=== PATIENT | female | born 1955 | race Caucasian/White ===

== ENCOUNTER 2019-08-07 14:11 | Emergency (ER) | payer OTHER, SELFPAY ==
[2019-08-07 14:12] VITALS: BP 116/81; PULSE 106; RESP 20; TEMP 37.2; O2SAT 96; BMI 28.8
--- NOTE | 2019-08-07 14:27 | CT_ITS ---
STUDY: CT SOFT TISSUE NECK WITH CONTRAST REASON FOR EXAM: Female, 64 years old. SORE THROAT AND DIFFICULTY SWALLOWING RADIATION DOSAGE (If Supplied By Facility): CTDIvol = ( 19.01 ) mGy, DLP = ( 531.74 ) mGycm TECHNIQUE: The patient was scanned in a multi-detector CT scanner. High resolution transaxial imaging was performed following intravenous administration of IV 100mL Isovue-300. Sagittal and coronal images were reconstructed. Individualized dose optimization techniques were used for this CT. COMPARISON: None. FINDINGS: Normal bilateral parotid glands. Normal bilateral necktie turner spaces. Normal bilateral parapharyngeal spaces. Normal bilateral carotid spaces. Normal bilateral sublingual and submandibular glands and spaces. Normal visualized nasopharynx. Normal retropharyngeal space. Normal perivertebral space. There is diffuse inhomogeneous enlargement of the left faucial tonsils. There is a 1.3 cm x 1.3 cm hypodensity in the anterior aspect as well as a 0.6 cm x 0.5 cm hypodensity posteriorly. These most likely represent 2 focal abscesses in the deep aspect of the left tonsils. The visualized tongue, tongue base and oropharynx are normal. There are minimally enlarged lymph nodes of the neck, with preservation of normal roberto carlos architecture, consistent with a reactive lymph hyperplasia. There is no demonstrated solid or cystic mass lesion. There is no abnormal contrast enhancement. Normal epiglottis, bilateral vallecula and hypopharynx. The pre-epiglottic and paraglottic adipose spaces are normal. Normal visualized bilateral piriform sinuses, aryepiglottic folds, vocal cords, and arytenoid-cricoid articulations. Normal subglottic trachea. Normal bilateral lobes of the thyroid gland. Normal visualized pulmonary apices. Normal visualized paranasal sinuses. There is degenerative changes of the cervical spine. CT/Soft Tissue Neck WITH Contrast IMPRESSION: Inhomogeneous enlargement of the left faucial tonsils with 2 areas suggestive of tonsillar abscess as described above.. Electronically Signed: Lauri Field, at 15:46 EDT , Service support ,
--- NOTE | 2019-08-07 14:30 | ED.VIS.GEN ---
History of Present Illness Chief Complaint: Sore Throat Informant: Patient Narrative: Patient presents to the emergency department for evaluation of sore throat. She tells me she felt ill on Monday. She has had some fevers no significant cough. She states that as time is gone on the inside of her throat feels more swollen my gland on the left side of the throat is swollen. Denies any rashes. No vomiting or diarrhea. She notes headache and fatigue. The patient states that she went to urgent care on Monday and was told to take Mucinex and another medication that she cannot recall that was for numbing her throat. Past Medical History - Allergies and Home Meds Allergies/Adverse Reactions: Allergies Sulfa (Sulfonamide Antibiotics) Allergy (Verified 08/07/19 14:14) Unknown Primary Care Physician: Kota Santos MD [Primary Care Provider] - Review of Systems General: Reports: Chills, Fever, Malaise. Denies: Sweats Eyes: Denies: Visual changes - bilaterally, Diplopia ENT: Reports: Sore throat. Denies: Rhinorrhea Cardiovascular: Denies: Chest pain, Palpitations Respiratory: Denies: Dyspnea, Cough, Dyspnea on exertion Gastrointestinal: Denies: Abdominal pain, Nausea, Vomiting, Diarrhea, Melena, Hematochezia Genitourinary: Denies: Dysuria, Hematuria, Frequency Musculoskeletal: Reports: Neck pain. Denies: Back pain, Extremity Pain Skin: Denies: Rash, Wounds Neurological: Denies: Headache, Weakness, Numbness Physical Exam Vital Signs/Narrative: Vital Signs Temp Pulse Resp BP Pulse Ox 08/07/19 14:12 98.9 F 106 H 20 H 116/81 H 96 Inital Vital Signs reviewed: Yes General: Well nourished, Well developed, No Acute Distress Head: Normocephalic, Atraumatic Eyes: Perrl, EOMI ENT: Moist mucous membranes, No rhinorrhea, - - Peritonsillar abscess. Patient is without tonsils however. There is some oropharyngeal erythema. She is handling her secretions normal. Neck: Supple Cardiovascular: Regular rate, Regular rhythm, No murmurs Respiratory: No distress, CTA bilaterally, Chest nontender Abdomen: Soft, Nontender, Nondistended, Normal bowel sounds Back: Nontender, Normal Inspection Extremities: Nontender, No edema Skin: Normal color, No rash Neurological: Alert, Oriented x3, Cranial nerves II-XII grossly intact, Normal Strength, Normal Sensation Psychological: Normal affect, Normal Mood ED Disposition - Plan for ED Patient: Disposition: Home or Assisted Living Diagnosis: Peritonsillar abscess Instructions: PERITONSILLAR INFECTION ABX only, no I and D Prescriptions: Amox/Clav 400mg/5ml Suspension [Augmentin Suspension 400mg/5ml] 11 ml PO Q12H 10 Days #220 ml Transmission Status: Pending to [id number] Hydrocodone/Acetaminophen [Hydrocodone-Acetamn 7.5-325/15] 15 ml PO Q8H PRN 5 Days #225 ml PRN Reason: Pain Score 1-10/10 Transmission Status: Received by [id number] Referrals: Sourav Whalen MD [STAFF PHYSICIAN] - (ON MONDAY - PLEASE CALL OFFICE FOR APPOINTMENT TIME)
[2019-08-07 14:46] VITALS: BP 130/82; PULSE 98; RESP 16; O2SAT 95
[2019-08-07 14:51] LABS: Absolute Neutrophil Count 8.3 X10^3/uL (2.0-7.7); Basophil# 0.03 X10^3/uL; Basophil% 0.3 % (0-1); Eosinophil# 0.03 X10^3/uL; Eosinophils% 0.3 % (0-5); Hematocrit 45.9 % (37-47); Hemoglobin 15.4 g/dL (12.0-15.0); Lymphocyte % 18.6 % (19-41); Mean Corp Hgb Conc 33.6 g/dL (32-36); Mean Corpuscular Hgb 30.7 pg (27.0-32.0); Mean Corpuscular Volume 91.4 fL (81-99); Mean Platelet Vol. 9.5 fl (6.2-12.0); Monocyte# 0.83 X10^3/uL; Monocyte% 7.4 % (0-10); NRBC Flagged by Analyzer 0 % (0-5); Neutrophil # 8.25 X10^3/uL (2.7-7.7); Neutrophil % 73.1 % (47-70); Platelet Count 204 K/mm3 (150-450); RBC Distribution Width CV 12.6 % (11.6-14.6); RBC Distribution Width SD 42.1 fl (35.1-43.9); Red Blood Count 5.02 M/mm3 (4.2-5.4); White Blood Count 11.3 K/mm3 (4.4-11.0)
[2019-08-07 15:06] LABS: Anion Gap 3 (5-15); BUN 16 mg/dL (7-18); BUN/Creat Ratio 19.1 RATIO (10-20); Calcium,Total 9.3 mg/dL (8.5-10.1); Chloride 105 mmol/L (98-107); Creatinine, Serum 0.84 mg/dL (0.55-1.02); EST Glomerular Filtration Rate 73 mL/min (>60); Est Glom Filt Rate - Afr Amer 88 mL/min (>60); Estimated Creatinine Clearance 56.71 ml/min; Glucose 232 mg/dL (74-106); Potassium 4.2 mmol/L (3.5-5.1); Sodium Level 136 mmol/L (136-145)
[2019-08-07] MEDS: 0.9% Normal Saline 1,000 ML 999 ML IV (15:42)
[2019-08-07] MEDS: dexAMETHasone 10 MG/ML Vial IV (15:43)
[2019-08-07] MEDS: Ketorolac 15 MG/ML Vial IV (15:43)
[2019-08-07 16:41] VITALS: BP 116/79; PULSE 79; RESP 18; O2SAT 95
== END 2019-08-07 16:42 | disposition home or self-care (01) ==
PROVIDERS: Emergency Provider Emergency Medicine; PCP Family Medicine
DX: J36 Peritonsillar abscess (principal)
CPT/HCPCS: 70491; 80048; 85025; 87070; 96361; 96374; 96375; 99282; J7030; Q9967; A4216

== ENCOUNTER → 2020-07-27 | Outpatient (CLI) | payer OTHER, SELFPAY ==
[2019-11-11 10:17] VITALS: BMI 28.8
--- NOTE | 2020-07-27 | ASPS_PTH ---
PATIENT: LOIS MATA LOC: [facility] U#:[id number] AGE/SX: 65/F ROOM: RE07/27/[address]: Dr. Vlad Medina MD : 1955 BED: DIS: 07/27/2020 SPEC #: [id number] RECD: 07/28/20 11:53 STATUS: YVAN REQ #: [id number] ROSE MARIE: 07/27/20 00:[address]: Vlad Medina DEPT: CYTOLOGY RECD BY: Francisco Perez ENTERED: 07/28/20 12:59 SP TYPE: ASPIRATION OTHR DR: Dr. Kota Santos MD Tissues: Thyroid gland, NOS Procedures: Special Stain Group II Cytology Other HEADER OPERATION: Ultrasound-guided fine needle aspiration of right thyroid PRE-OP DIAGNOSIS: Thyroid nodules TISSUE SUBMITTED: Right thyroid FNA slides x13 DIAGNOSIS CYTOLOGY Right thyroid, ultrasound-guided FNA (smears): Rare atypical cells of undetermined significance noted in the background of benign colloid nodule. Adequate for evaluation. See comment. SJ:sabina 07/29/2020 COMMENT Focal calcification is also noted. Correlation with clinical, radiologic findings and appropriate follow up are necessary. CYTOLOGY STUDY Slides are reviewed. CYTOLOGY GROSS Received are 13 smears labeled with the patient's name and designated per the requisition as right thyroid. Submitted for staining. / sabina 07/28/2020 TC:5 CPT: 19817 ADDENDUM ADDENDUM ADDENDUM ADDENDUM ADDENDUM ADDENDUM ADDENDUM ADDENDUM ADDENDUM ADDENDUM 12/16/2020 10:05 ADDENDUM 12/16/2020 10:05 ADDENDUM 12/16/2020 10:05 ADDENDUM 12/16/2020 10:05 ADDENDUM 12/16/2020 10:05 This addendum is added to incorporate an outside pathology consultation report. The case was examined at [facility] (#[id number]) and the following diagnosis was rendered. Right thyroid, ultrasound-guided fine needle aspiration: Atypia of undetermined significance. Please see complete above mentioned consultation report in EMR
== END | disposition home or self-care (01) ==
LOC: LABSPEC 07-28 12:11
PROVIDERS: PCP Family Medicine; Referring Provider Surgery; Visit Provider Surgery
DX: E04.2 Nontoxic multinodular goiter (principal)
CPT/HCPCS: 88161; 88313

== ENCOUNTER → 2021-03-05 11:05 | Outpatient (CLI) | payer MEDICARE, BC, SELFPAY ==
--- NOTE | 2021-03-05 | CYSPIN_PTH ---
PATIENT: LOIS MATA LOC: [facility] U#:[id number] AGE/SX: 70/F ROOM: RE03/05/[address]: Dr. Ariane Smith MD : 1955 BED: DIS: SPEC #: [id number] RECD: 03/08/21 07:45 STATUS: YVAN REBobby #: [id number] ROSE MARIE: 03/05/21 00:[address]: Ariane Smith DEPT: CYTOLOGY RECD BY: Francisco Perez ENTERED: 03/08/21 07:46 SP TYPE: CYSPIN FL OTHR DR: Dr. Kota Santos MD Tissues: Urine Procedures: Pap Stain (control) Special Stain Group II Cytospin Fluid HEADER OPERATION: Not noted PRE-OP DIAGNOSIS: Gross hematuria TISSUE SUBMITTED: Urine for cytology DIAGNOSIS CYTOLOGY Urine for cytology (cytospin): Negative for malignant cells. See comment. GRACY:sabina 03/08/2021 COMMENT Clinical correlation and appropriate follow up are necessary. CYTOLOGY STUDY Slides are reviewed. CYTOLOGY GROSS Received is 10 ml of light yellow cloudy fluid labeled with the patient's name and and designated per the requisition as urine. Submitted for cytology preparation. / sabina 03/05/21 TC:5 CPT: 85741
[2021-03-05 13:33] LABS: Cytology, Body Fluid / CSF SEE PATHOLOGY REPORT
[2021-03-05 13:46] LABS: Anion Gap 4 (5-15); BUN 15 mg/dL (7-18); BUN/Creat Ratio 23.3 RATIO (10-20); Calcium,Total 9.3 mg/dL (8.5-10.1); Chloride 106 mmol/L (98-107); Creatinine, Serum 0.64 mg/dL (0.55-1.02); EST Glomerular Filtration Rate 98 mL/min (>60); Est Glom Filt Rate - Afr Amer 119 mL/min (>60); Glucose 110 mg/dL (74-106); Potassium 4.5 mmol/L (3.5-5.1); Sodium Level 139 mmol/L (136-145)
== END ==
PROVIDERS: PCP Family Medicine; Referring Provider Urology; Visit Provider Urology
DX: R31.0 Gross hematuria (principal)
CPT/HCPCS: 36415; 80048; 88108; 88313

== ENCOUNTER → 2021-03-15 15:47 | Outpatient (CLI) | payer MEDICARE, BC, SELFPAY ==
--- NOTE | 2021-03-15 15:50 | CT_ITS ---
EXAM: CT ABDOMEN AND PELVIS WITHOUT AND WITH INTRAVENOUS CONTRAST : 1955 CLINICAL INDICATION: GROSS HEMATURIA TECHNIQUE: Helically acquired images were obtained of the abdomen and pelvis without and with intravenous contrast. This CT exam was performed using one or more of the following dose reduction techniques: automated exposure control, adjustment of the mA and/or kV according to patient size, and/or use of iterative reconstruction technique. This report was created using [employer] report generation technology. CONTRAST: 100 CC ISOVUE 300 COMPARISON: None. FINDINGS: LOWER THORAX: Unremarkable. Lung bases are clear. No cardiomegaly. No significant pericardial effusion. ABDOMEN: LIVER: Unremarkable. Homogeneous. No focal mass. GALLBLADDER AND BILE DUCTS: Unremarkable. No calcified gallstones. No gallbladder distention or wall edema. No intra- or extrahepatic biliary ductal dilation. PANCREAS: Unremarkable. No focal cystic or solid mass. SPLEEN: Unremarkable. Normal size without focal cystic or solid mass. ADRENALS: Unremarkable. No nodules. KIDNEYS AND URETERS: Unremarkable. Normal renal size and position. No hydronephrosis. STOMACH AND BOWEL: Unremarkable. No stomach or bowel distention. No focal inflammatory change. PELVIS: APPENDIX: No evidence of acute appendicitis. BLADDER: Unremarkable. REPRODUCTIVE: Unremarkable as visualized. No mass. ABDOMEN and PELVIS: INTRAPERITONEAL SPACE: Unremarkable. No ascites or other fluid collection. No free air. BONES/JOINTS: Unremarkable. No suspicious lytic or blastic abnormality. SOFT TISSUES: Unremarkable. No discrete abdominal or pelvic wall hernia. VASCULATURE: Unremarkable. Abdominal aorta is non-dilated. LYMPH NODES: Unremarkable. No enlarged lymph nodes. CT/CT Abd/Pelvis W/WO Contrast IMPRESSION: Negative CT of the abdomen and pelvis without and with intravenous contrast. Individualized dose optimization techniques were used for this CT. at 0318 Reported and signed by: Hugh Cross MD Electronically Signed: Hugh Cross MD at 3:17 EDT Tel , Service support ,
== END ==
PROVIDERS: PCP Family Medicine; Referring Provider Urology; Visit Provider Urology
DX: R31.0 Gross hematuria (principal)
CPT/HCPCS: 74178; Q9967

== ENCOUNTER 2021-03-26 16:48 | Emergency (ER) | payer MEDICARE, BC, SELFPAY ==
--- NOTE | 2021-03-26 16:52 | RAD_ITS ---
STUDY: XR Wrist Min 3 Views REASON FOR EXAM: Female, 66 years old. PAIN TECHNIQUE: XR Wrist Min 3 Views COMPARISON: None. FINDINGS: Fracture of the ulnar styloid. Fracture of the distal radial metadiaphysis. Extension to the articular surface. There are no acute findings of the radiocarpal articulation. Normal distal radioulnar articulation. Normal carpal bones. Normal carpal articulations. There are no acute findings of the carpometacarpal articulation of the thumb. Normal second through fifth carpometacarpal articulations. There are no acute findings of the visualized metacarpal bones. Soft tissue swelling of the wrist. RAD/Wrist min 3 Views IMPRESSION: Ulnar and radial fracture. Electronically Signed: Yuri Newell MD at 17:38 EDT , Service support ,
--- NOTE | 2021-03-26 16:52 | RAD_ITS ---
EXAM: XR RIGHT ANKLE COMPLETE, 3 OR MORE VIEWS CLINICAL INDICATION: FALL, PAIN TECHNIQUE: Frontal, lateral and oblique views of the right ankle. This report was created using [employer] report generation technology. COMPARISON: None. FINDINGS: BONES/JOINTS: There is an enthesophyte involving the posterior superior calcaneus at the site of insertion of the Achilles tendon. No acute fracture. No subluxation. Normal alignment. Preservation of the joint space. No sclerotic or destructive changes observed. SOFT TISSUES: There is non specific soft tissue swelling. No radiopaque foreign body. RAD/Ankle min 3 Views IMPRESSION: There is non specific soft tissue swelling. Electronically Signed: Yuri Newell MD at 17:37 EDT , Service support ,
[2021-03-26 17:46] VITALS: BP 111/79; PULSE 77; RESP 16; TEMP 36.7; O2SAT 98; BMI 24.4
[2021-03-26] MEDS: Ketorolac 30 MG/ML Syringe IM (18:17)
--- NOTE | 2021-03-26 19:33 | EX.ED.UPPERE ---
HPI History of Present Illness Chief Complaint: Upper Extremity Injury Narrative Narrative: Patient is 66-year-old female who is left-hand dominant. She states today she was on the phone when she tripped and fell landing on her left arm. She states that she did not lose consciousness nor does she take any blood thinners. She reports she has had pain and swelling to the left wrist/hand has concern for fracture and therefore comes in for evaluation. [facility] Medical History abdominal plastic Appendicitis, unqualified Diabetes Gastrointestinal intolerance to foods Hyperlipidemia Liver disease Home Medications calcium carbonate 1,200 mg PO DAILY 08/07/19 [History Last Taken 08/03/19] cholecalciferol (vitamin D3) 1,000 unit PO DAILY 08/07/19 [History Last Taken 08/03/19] cyanocobalamin (vitamin B-12) 1,000 mcg PO DAILY 08/07/19 [History Last Taken 08/03/19] metformin 500 mg tablet,extended release 24 hr 500 mg PO BID tab 11/11/19 [History Last Taken Unknown] ezetimibe 10 mg PO DAILY 03/26/21 [History Last Taken Unknown] ketorolac 10 mg PO .qid PRN 7 Days #28 tab 03/26/21 [Rx Last Taken Unknown] ketorolac 10 mg PO TID 7 Days #21 tab 03/26/21 [Rx Last Taken Unknown] Allergy/AdvReac Type Severity Reaction Status Date / Time Sulfa (Sulfonamide Allergy Unknown Verified 03/26/21 16:52 Antibiotics) atorvastatin [From Lipitor] AdvReac Severe Unknown Verified 03/26/21 16:52 Family History Mother Diabetes Hypertension Hyperlipidemia Osteoporosis Father Ulcer CVA (cerebral vascular accident) Surgical History H/O: hysterectomy Hx of breast reduction, elective Social History (Updated 11/11/19 @ 10:[address] Manoj Vargas MD) Smoking Status: Never smoker alcohol intake: never substance use type: does not use ROS ROS ED Constitutional Constitutional ED: Denies chills or fever(s) Cardiovascular Cardiovascular: Denies chest pain Respiratory/Chest Respiratory/Chest: Denies cough or dyspnea Gastrointestinal Gastrointestinal: Denies abdominal pain, diarrhea, nausea or vomiting Musculoskeletal Musculoskeletal: Reports other Details: Positive left wrist pain ; Denies back pain, myalgias or neck pain Integumentary Denies Abrasions or rash Neurologic Neurologic: Denies headache(s) or paresthesias Hematologic/Lymphatic Hematologic/Lymphatic: Denies easy bleeding or easy bruising EXAM Physical Exam Const Vital Signs: 03/26/21 17:46 Temperature 98.0 F Temperature Source Temporal Pulse Rate 77 Respiratory Rate 16 Blood Pressure 111/79 Blood Pressure Mean 89 Pulse Ox 98 Oxygen Delivery Method Room Air Positive well nourished and well developed General Appearance ED: well developed HEENT HEENT Narrative: No signs of depressed or basilar skull fracture Eyes PERRL and EOMs intact bilaterally Neck full ROM and supple Neck Narrative: No bony deformity or step-off of the cervical spine no midline pain with palpation Resp normal respiratory effort and clear to auscultation bilaterally Cardio regular rate and regular rhythm Extremity Extremity Narrative: Left upper extremity is neurovascularly intact. She has soft tissue swelling to the dorsal aspect of the left wrist with slight deformity concerning for fracture. Active and passive range of motion is decreased secondary to pain. Remainder of the exam is normal. Neuro oriented x3 and CN's II-XII intact bilaterally Sensorium / Orientation: alert Psych mental status grossly normal Skin no rashes or lesions noted Skin Narrative: Soft tissue swelling with ecchymosis to the left wrist noted but otherwise no lacerations or rash MDM MDM MDM Narrative Medical decision making narrative: Patient presented to the ER after mechanical fall therefore there is no need for cardiac or syncope work-up. X-rays were obtained and did confirm a left distal radius fracture. The fracture is overall nondisplaced and therefore there is no need for reduction or emergent orthopedic consultation. Fracture is also closed with no neurologic changes. Therefore patient was placed in a Ortho-Glass sugar tong splint for stabilization and can follow-up with orthopedics on an outpatient basis to discuss need for casting The patient had her left forearm placed in a Ortho-Glass sugar tong splint. The splint fit with good approximation and stabilize the fracture fragment. After placement capillary refill remained less than 3 seconds and she tolerated the procedure well without complication Radiography Diagnostic Testing: Clinical Impression(s) from Imaging Studies Ankle X-Ray 03/26/21 16:52 IMPRESSION: There is non specific soft tissue swelling. Electronically Signed: Yuri Newell MD at 17:37 EDT , Service support , Wrist X-Ray 03/26/21 16:52 IMPRESSION: Ulnar and radial fracture. Electronically Signed: Yuri Newell MD at 17:38 EDT , Service support , Discharge Plan Triage Chief Complaint: Upper Extremity Injury ED Provider: Rufus Gary Dx/Rx/DC Orders Clinical Impression: Closed fracture of distal end of left radius Instructions: Splint Care, ED Forearm Fx Wo Redu Prescriptions: New ketorolac 10 mg tablet 10 mg PO .qid PRN (Reason: pain) 7 Days Qty: 28 RF: 0 ketorolac 10 mg tablet 10 mg PO TID 7 Days Qty: 21 RF: 0 No Action calcium carbonate 600 MG tablet 1,200 mg PO DAILY RF: 0 cyanocobalamin (vitamin B-12) 500 MCG tablet 1,000 mcg PO DAILY RF: 0 cholecalciferol (vitamin D3) 1,000 UNIT tablet 1,000 unit PO DAILY RF: 0 metformin 500 mg tablet extended release 24 hr 500 mg PO BID RF: 0 ezetimibe 10 mg tablet 10 mg PO DAILY RF: 0 Primary Care Provider: Kota Santos Referrals: Kota Santos MD [Primary Care Provider] - David Hughes MD [STAFF PHYSICIAN] - 3-5 Days (Distal radius fracture) Disposition Disposition: Home, Self Care Discharge Date/Time: 03/26/21 20:10
== END 2021-03-26 20:10 | disposition home or self-care (01) ==
PROVIDERS: Emergency Provider Emergency Medicine; PCP Family Medicine
DX: S52.502A Unspecified fracture of the lower end of left radius, initial encounter for closed fracture (principal); E11.9 Type 2 diabetes mellitus without complications; E78.5 Hyperlipidemia, unspecified; Z79.84 Long term (current) use of oral hypoglycemic drugs; Z79.899 Other long term (current) drug therapy; W01.0XXA Fall on same level from slipping, tripping and stumbling without subsequent striking against object, initial encounter; Y93.01 Activity, walking, marching and hiking; Y92.89 Other specified places as the place of occurrence of the external cause; Y99.8 Other external cause status
CPT/HCPCS: 29125; 73110; 73610; 96372; 99283

== ENCOUNTER 2021-08-13 12:42 | Outpatient (CLI) | payer MEDICARE, BC, SELFPAY ==
--- NOTE | 2021-08-13 14:58 | ST.MBS ---
Modified Barium Swallow - Patient Information Study Date: 08/13/21 Study Time: 13:00 Direct Billable Minutes: 80 Total Minutes procedure & reportin Diagnosis: Dysphagia, unspecified (R13.10) Referring Physician: Sourav Whalen Reason for Referral: Objectively assess swallow function, risk for aspiration, and determine recommendations for least restrictive diet textures and compensatory strategies to improve safety of swallow. Medical History: The patient is a 66 year old female who reports intermittent difficulty swallowing since June of 2019 after experiencing a throat infection - unknown specific diagnosis. At that time, she reports going to the ED to receive IV fluids because she could not swallow due to inflammation. She reports not requiring intubation. She has PMH including tonsillectomy, thyroid disease, and reflux (long time ago per pt). When she has difficulty swallowing, it is usually with foods like chicken or when taking multiple medications at one time. She presents with sensation of foods feeling stuck in her throat, which results in coughing. Current Diet Ordered: Regular Textures / Thin Liquids Dentition: WNL Mental Status: WNL Respiratory Status: Oxygenating on Room Air - Penetration-Aspiration Scale Penetration-Aspiration Scale: OBJECTIVE ASSESSMENT OF SWALLOW FUNCTION (QUANTITATIVE ? PER TRIAL): PENETRATION / ASPIRATION SCALE (BRYANT): 1 = does not enter airway 2 = enters airway/above vocal folds/ejected 3 = enters airway/above vocal folds/not ejected 4 = enters airway/contacts vocal folds/ejected 5 = enters airway/contacts vocal folds/not ejected 6 = enters airway/below vocal folds/ejected 7 = enters airway/below vocal folds/not ejected despite effort 8 = enters airway/below vocal folds/no effort VIDEOFLOROSCOPIC SCALE SCORE (BRYANT): Grade I = aspiration of material that has penetrated into the laryngeal vestibule, intact cough reflex Grade II = aspiration < 10 % of the bolus, intact cough reflex Grade III = aspiration of < 10 % of the bolus, reduced cough reflex or aspiration of > 10 % of the bolus, intact cough reflex Grade IV = aspiration of > 10 % of the bolus, reduced cough reflex - Oral Phase Labial Seal: No Labial Escape Tongue Control During Bolus Hold: Posterior escape of less than half of bolus Bolus Preparation/Mastication: Timely and efficient chewing and mashing Bolus Transport/Lingual Motion: Brisk tongue motion Oral Residue: Trace residue lining oral structures - Pharyngeal Phase Initiation of Pharyngeal Swallow: Bolus head in pyriforms Soft Palate Elevation: No bolus between soft palate and pharyngeal wall Laryngeal Elevation: Partial superior movement thyroid cart/partial apprx aryt-epig petiole Anterior Hyoid Excursion: Complete anterior movement Epiglottic Movement: Complete inversion Laryngeal Vestibule Closure at Height of Swallow: Complete; no air/contrast in laryngeal vestibule Pharyngeal Stripping Wave: Present - diminished Pharyngoesophageal Segment Opening: Complete distension and complete duration; no obstruction of flow Tongue Base Retraction: Trace column of contrast between tongue base & post. pharyngeal wall Pharyngeal Residue: Trace residue within or on pharyngeal structures - Esophageal Phase Esophageal Clearance: Esophageal retention - Significant esophageal retention observed in the distal esophagus with little to no emptying observed during esophageal screen. - Diagnosis/Impression Diagnosis: Swallow function grossly WNL Impression: The oral phase had min posterior loss of certain thin liquid trials to the pyriforms prior to swallow onset. In the pharyngeal phase, she has mildly reduced laryngeal elevation; however, the patient demonstrated excellent airway closure during the swallow throughout the study. No laryngeal penetration or aspiration occurred during the study. Trace oral and pharyngeal residues after the swallow. On honey/moderately thick trial, the patient demonstrated gag and dry heave with reflux of bolus to the level of the UES with quick re-swallow initiated to clear the trial from the upper esophagus. She also has retention of contrast in distal esophagus with little to no emptying. C-P bar observed at the level of C6; however, no impedance of bolus observed through UES. Would strongly consider GI consult to address esophageal retention. - Recommendations Diet: Regular Textures - Consider cutting meats bite size. Moisten dry textures., Thin Liquids Comment: Take pills one at a time. Compensatory Strategies: Small Bites, Small Sips, Slow Rate, Sitting upright, Remain sitting upright for 30 minutes after PO intake Recommend Repeat Modified Barium Swallow: No Need for Skilled Speech Therapy Services: No Recommended Referrals: GI Consult - Significant esophageal retention observed in the distal esophagus with little to no emptying observed during esophageal screen. Education Completed: 1. Described result of evaluation. - Status Active ST Patient: Active - Contact Information [facility] Speech Therapy:: Ela Parnell M.A. [facility] Speech-Language Pathologist [facility] [address] [place] [address] [email or web address] [phone] 08/13/21 15:14
== END 2021-08-13 23:59 | disposition home or self-care (01) ==
LOC: RAD 12:43
PROVIDERS: PCP Family Medicine; Visit Provider Otolaryngology
DX: R13.10 Dysphagia, unspecified (principal)
CPT/HCPCS: 74230; 92611